=== PATIENT | female | born 1990 | race Caucasian/White ===

== ENCOUNTER 2022-10-12 13:08 | Emergency (ER) | payer BC ==
[~2022-10-12] VITALS: Ht 154.9 cm; Wt 100.0 kg
[2022-10-12 16:53] VITALS: BP 116/70
== END 2022-10-12 16:57 | disposition home or self-care (01) ==
LOC: EMS 13:21
DX: U07.1 COVID-19 (principal)
CPT/HCPCS: 71045; 99283